=== PATIENT | female | born 1940 | race Caucasian/White ===

== ENCOUNTER 2018-10-15 10:09 | Inpatient (IN) | payer MEDICARE, BC ==
[2018-10-14 14:12] LABS: MONOCYTES # (AUTO) 0.1 X10'3 (0-0.9); NEUTROPHILS # (AUTO) 1.4 X10'3 (1.8-7.7)
[2018-10-14 14:14] LABS: BASOPHILS % (AUTO) 1.6 % (0-1); EOSINOPHILS % (AUTO) 0.4 % (0-6); LYMPHOCYTES # (AUTO) 0.1 X10'3 (1.1-4.8); LYMPHOCYTES % (AUTO) 8.9 % (21-51); MEAN CORPUSCULAR HEMOGLOBIN 39.6 PG (27.0-31.0); MEAN CORPUSCULAR HGB CONC 34.2 g/dL (33.0-36.5); MEAN CORPUSCULAR VOLUME 115.8 FL (78-98); MEAN PLATELET VOLUME 9.5 FL (7.4-10.4); MONOCYTES % (AUTO) 3.3 % (2-12); NEUTROPHILS % (AUTO) 85.8 % (42-75); PRE OP HEMATOCRIT 26.3 % (35.0-45.0); PRE OP PLATELET COUNT 169 X10'3 (140-440); RED BLOOD COUNT 2.27 X10'6 (4.20-5.60); RED CELL DISTRIBUTION WIDTH 25.6 % (11.5-14.5)
[2018-10-14 14:22] LABS: PRE OP INR 1.1 INR; PRE OP PROTIME 10.7 SECONDS (9.0-12.0)
[2018-10-14 14:24] LABS: ALBUMIN 3.3 G/DL (3.4-5.0); ALBUMIN/GLOBULIN RATIO 0.9 (1.1-1.5); ALKALINE PHOSPHATASE 101 IU/L (46-116); BLOOD UREA NITROGEN 10 MG/DL (7-18); BUN/CREATININE RATIO 12.7 (6.6-38.0); CALCIUM 8.2 MG/DL (8.5-10.1); CHLORIDE 108 MMOL/L (99-107); CREATININE 0.79 MG/DL (0.40-0.90); PRE OP ALT 18 U/L (30-65); PRE OP ANION GAP 9 (8-16); PRE OP AST 20 U/L (10-37); PRE OP BILIRUB, TOTAL 0.6 MG/DL (0.0-1.0); PRE OP GLUCOSE 121 MG/DL (70-104); PRE OP POTASSIUM 3.8 MMOL/L (3.4-5.1); PRE OP SODIUM 141 MMOL/L (135-145); TOTAL CARBON DIOXIDE 24.3 MMOL/L (24-32); TOTAL PROTEIN 6.8 G/DL (6.4-8.2); eGFR 70 ML/MIN
[2018-10-14 14:52] LABS: ANISOCYTOSIS 3+; PLATELET ESTIMATE NORMAL; TOTAL CELLS COUNTED 100
[2018-10-14 14:53] LABS: POLYCHROMASIA 1+
[~2018-10-15] VITALS: Ht 157.5 cm; Wt 54.9 kg
[2018-10-15] VITALS (16 sets, daily range): BP systolic 77–136; BP diastolic 40–74
[~2018-10-15 10:09] MED LIST: CHEMO INFUSION; LETR2.5T6 PO; LOSA50TA64 PO; NAPR125O4 PO; PALB100C PO
[2018-10-15] MEDS ORDERED: famotidine 20mg tablet PO ONE (10:15)
[2018-10-15] MEDS ORDERED: cefazolin/dext.iso 2gm/100 ML IV ONE (10:15)
[2018-10-15] MEDS ORDERED: VANCOMYCIN INJ 1000 MG in NORMAL SALINE 250ml IV.SOLN IV ONE (10:15)
[2018-10-15] MEDS: ringers solution, lacted 1,000 ML IV SCH (10:43)
[2018-10-15] MEDS ORDERED: tetracaine 1% (10mg/ml) pres. free inj. ONE (13:00)
[2018-10-15] MEDS ORDERED: MIDAZolam 5mg/5ml vial ONE (13:03)
[2018-10-15] MEDS ORDERED: fentaNYL/PF 50MCG/1 ML 2ML syringe ONE (13:03)
[2018-10-15] MEDS ORDERED: phenylephrine 10mg/ml inj. ONE (13:20)
[2018-10-15] MEDS ORDERED: ePHEDrine 50MG/ML INJ. ONE (13:20)
[2018-10-15] MEDS ORDERED: BUPIVAcaine/PF 2.5 mg/ml (0.25%) 30ml vial ONE (13:47)
[2018-10-15] MEDS ORDERED: ringers solution, lacted 1,000 ML IV SCH (13:54)
[2018-10-15] MEDS ORDERED: ondansetron/PF 4mg/2ml inj IV PRN ×2 (13:55→15:00)
[2018-10-15] MEDS ORDERED: meperidine/PF 25mg/ml syringe IV PRN ×3 (13:55)
[2018-10-15] MEDS ORDERED: morphine 4 MG/ML inj SYRINge IV PRN ×2 (13:55)
[2018-10-15] MEDS ORDERED: proCHLORperazine 10 MG/2 ml inj IV PRN (13:55)
--- NOTE | 2018-10-15 14:26 | NUR ---
Received from OR via ORTHOPEDIC BED WITH [facility] , accompanied by Anesthesiologist KAI and report given by Anesthesiolgist.PATIENT WITH 20G PIVI N RIGHT UE RUNNING LR AT 100. DENIES PAIN AT THIS TIME. VSS. RIGHT HIP DRESSING IS CDI. 4X4S AND OPSITE DRESSING IS CDI. + DORSALIS PEDIS PRESENT. SCDS DONNED IN RR. Addendum: 10/15/18 at 1442 by Romain Vergara RN, RN Amended: Links added.
[2018-10-15] MEDS ORDERED: acetaminophen 325mg tablet PO PRN (15:00)
[2018-10-15] MEDS ORDERED: bisacodyl 10mg suppository rectal RC PRN (15:00)
[2018-10-15] MEDS ORDERED: metoclopramide 5 mg/ml inj IV PRN (15:00)
[2018-10-15] MEDS ORDERED: diphenhydrAMINE 25mg capsule PO PRN ×2 (15:00)
[2018-10-15] MEDS ORDERED: mag hydrox/Alum hydrox/simeth 30ml oral suspension PO PRN (15:00)
[2018-10-15] MEDS ORDERED: magnesium hydroxide 30ml (MOM) UD suspension PO PRN (15:00)
--- NOTE | 2018-10-15 15:16 | NUR ---
ALL CRITERIA FOR TRANSFER TO THE FLOOR HAS BEEN ACHIEVED. VSS. BED LOW, CALL LIGHT AND VS. SET IN PLACE. FAVIOLA MIKE PRESENT TO ACCEPT CARE. PATIENT RESTING COMFORTABLY IN BED. BELONGINGS SENT WITH PATIENT. DRESSINGS CDI. Addendum: 10/15/18 at 1525 by Romain Vergara RN, RN Amended: Links added.
[2018-10-15] MEDS: ceFAZolin 1GM/D5W- ADD-VANTAGE 50 ML IV SCH (16:09)
[2018-10-15] MEDS: potassium cl 20mEq in 1/2 NS 1,000 ML IV SCH (16:10)
--- NOTE | 2018-10-15 18:05 | NUR ---
Problems reprioritized. Patient report given, questions answered & plan of care reviewed with JOSE MANUEL SALMERON.
[2018-10-15] MEDS ORDERED: vancomycin/NS 1 GM ADD-VANTAGE 250 ML IV SCH (20:00)
[2018-10-15] MEDS: ascorbic acid 500mg tablet PO SCH (20:33)
[2018-10-15] MEDS: gabapentin 300mg capsule PO SCH (20:35)
[2018-10-15] MEDS: acetaminophen 325mg tablet PO SCH (20:35)
[2018-10-15] MEDS: sennosides 8.6mg tablet PO SCH (20:36)
[2018-10-16] VITALS (14 sets, daily range): BP systolic 90–147; BP diastolic 45–118
[2018-10-16] MEDS: ceFAZolin 1GM/D5W- ADD-VANTAGE 50 ML IV SCH (00:09)
[2018-10-16] MEDS: acetaminophen 325mg tablet PO SCH ×5 (02:00→20:00)
[2018-10-16] MEDS: potassium cl 20mEq in 1/2 NS 1,000 ML IV SCH ×4 (02:30→22:56)
[2018-10-16] MEDS: ibuprofen 100 MG/5 ML oral susp PO PRN ×2 (02:31→14:14)
[2018-10-16] MEDS: ringers solution, lacted 1,000 ML IV SCH (04:30)
--- NOTE | 2018-10-16 06:00 | NUR ---
Patient in room ORTHO 4007. I have received report from JOSE MANUEL SALMERON and had the opportunity to ask questions and assume patient care.
[2018-10-16 06:29] LABS: EOSINOPHILS % (AUTO) 2.1 % (0-6); LYMPHOCYTES # (AUTO) 0.1 X10'3 (1.1-4.8); LYMPHOCYTES % (AUTO) 19.6 % (21-51); MEAN CORPUSCULAR HEMOGLOBIN 40.9 PG (27.0-31.0); MEAN CORPUSCULAR HGB CONC 35.1 g/dL (33.0-36.5); MEAN CORPUSCULAR VOLUME 116.4 FL (78-98); MEAN PLATELET VOLUME 9.4 FL (7.4-10.4); MONOCYTES % (AUTO) 6.3 % (2-12); NEUTROPHILS # (AUTO) 0.4 X10'3 (1.8-7.7); PLATELET COUNT 89 X10'3 (140-440); RED BLOOD COUNT 1.55 X10'6 (4.20-5.60)
[2018-10-16 06:31] LABS: ANION GAP 8 (8-16); CHLORIDE 111 MMOL/L (99-107); POTASSIUM 4.2 MMOL/L (3.5-5.1); SODIUM 140 MMOL/L (135-145); TOTAL CARBON DIOXIDE 21.5 MMOL/L (24-32)
[2018-10-16 06:50] LABS: WHITE BLOOD COUNT 0.6 X10'3 (4.5-11.0)
[2018-10-16 06:51] LABS: HEMATOCRIT 18.1 % (35.0-45.0); HEMOGLOBIN 6.3 g/dl (12.0-16.0)
[2018-10-16 07:00] LABS: PLATELET ESTIMATE DECREASED; TOTAL CELLS COUNTED 50
[2018-10-16 07:01] LABS: ANISOCYTOSIS 3+; HYPOCHROMASIA 1+; POLYCHROMASIA 1+; TEAR DROP CELLS 1+
[2018-10-16] MEDS ORDERED: morphine 2 MG/ML inj. syringe IV PRN (07:15)
[2018-10-16] MEDS: ascorbic acid 500mg tablet PO SCH ×2 (08:00→20:00)
[2018-10-16] MEDS ORDERED: enoxaparin 40mg/0.4ml syringe SQ SCH (08:00)
[2018-10-16] MEDS ORDERED: PALB125C PO (08:40)
[2018-10-16] MEDS ORDERED: PALB100C PO (08:59)
[2018-10-16] MEDS: PALBOCICLIB PO SCH (09:36)
[2018-10-16] MEDS: LETROZOLE 2.5 MG PO SCH (09:36)
[2018-10-16] MEDS: gabapentin 300mg capsule PO SCH ×3 (09:36→20:45)
[2018-10-16] MEDS: multivitamins, therapeutics tablet PO SCH (09:37)
[2018-10-16] MEDS: losartan 50mg tablet PO SCH (09:38)
--- NOTE | 2018-10-16 16:21 | NUR ---
Malnutrition consult: pt presents with mild weakness, first admission here no weight history. s/p closed prophylactic rodding femoral right 10/15. RLE trace 1+ non pitting edema, possibly r/t recent surgery. Eating 25% of meals. Patient seen at bedside, very pleasant demeanor. Reports that her appetite waxes and wanes and tried to drink carnation instant breakfast and boost when her appetite is poor. Recommend sending Ensure Enlive with meals, notified MD and Dietary. Pt prefers chocolate and vanilla. Patient reports her UBW is 130 lbs, currently weighs 121 lbs, 7.3% less than usual. Reports the weight loss occurred over 3 months. Patient does meet criteria for moderate malnutrition, given written malnutrition education handout with verbal review. Pt requesting chopped meats, d/w dietary. Encouraged patient to consumed high calorie foods and provided examples. Malnutrition may be r/t undergoing chemotherapy for CA. Will continue to follow. Recommend: 1. continue regular diet 2. send ensure enlive with all meals 3. encourage high calorie meals 4. wt per rx Addendum: 10/16/18 at [address] Amended: Links added.
[2018-10-16] MEDS: lactose-reduced food (Ensure Enlive) - 237ml bottle PO SCH (18:00)
--- NOTE | 2018-10-16 18:00 | NUR ---
Problems reprioritized. Patient report given, questions answered & plan of care reviewed with JOSE MANUEL SALMERON.
[2018-10-16] MEDS: sennosides 8.6mg tablet PO SCH (21:00)
[2018-10-17] MEDS: acetaminophen 325mg tablet PO SCH ×2 (02:00→08:00)
[2018-10-17 06:00] VITALS: BP 156/74
--- NOTE | 2018-10-17 06:05 | NUR ---
Patient in room ORTHO 4007. I have received report from JOSE MANUEL SALMERON and had the opportunity to ask questions and assume patient care.
[2018-10-17] MEDS: potassium cl 20mEq in 1/2 NS 1,000 ML IV SCH (06:33)
[2018-10-17 06:53] LABS: HEMATOCRIT 32.1 % (35.0-45.0); LYMPHOCYTES # (AUTO) 0.1 X10'3 (1.1-4.8); MEAN CORPUSCULAR HEMOGLOBIN 35.2 PG (27.0-31.0); MEAN CORPUSCULAR HGB CONC 34.4 g/dL (33.0-36.5); NEUTROPHILS # (AUTO) 0.6 X10'3 (1.8-7.7); RED BLOOD COUNT 3.14 X10'6 (4.20-5.60)
[2018-10-17 06:58] LABS: BASOPHILS % (AUTO) 1.6 % (0-1); EOSINOPHILS % (AUTO) 2.7 % (0-6); HEMOGLOBIN 11.1 g/dl (12.0-16.0); MEAN CORPUSCULAR VOLUME 102.5 FL (78-98); MONOCYTES # (AUTO) 0.1 X10'3 (0-0.9); MONOCYTES % (AUTO) 6.4 % (2-12); NEUTROPHILS % (AUTO) 72.3 % (42-75); PLATELET COUNT 92 X10'3 (140-440); RED CELL DISTRIBUTION WIDTH 26.8 % (11.5-14.5)
[2018-10-17 07:18] LABS: WHITE BLOOD COUNT 0.9 X10'3 (4.5-11.0)
[2018-10-17] MEDS: multivitamins, therapeutics tablet PO SCH (08:00)
[2018-10-17] MEDS: ascorbic acid 500mg tablet PO SCH (08:00)
[2018-10-17] MEDS: gabapentin 300mg capsule PO SCH (08:00)
[2018-10-17] MEDS ORDERED: aspirin 325mg tablet PO SCH (08:30)
[2018-10-17] MEDS: losartan 50mg tablet PO SCH (08:56)
[2018-10-17] MEDS: lactose-reduced food (Ensure Enlive) - 237ml bottle PO SCH (08:57)
[2018-10-17] MEDS: LETROZOLE 2.5 MG PO SCH (08:57)
[2018-10-17] MEDS: PALBOCICLIB PO SCH (08:57)
[2018-10-17 09:09] LABS: ANISOCYTOSIS 3+; PLATELET ESTIMATE DECREASED; TOTAL CELLS COUNTED 100
[2018-10-17 09:10] LABS: LARGE PLATELETS FEW; POIKILOCYTOSIS 1+; POLYCHROMASIA 1+; TEAR DROP CELLS FEW
[2018-10-17] MEDS: ibuprofen 100 MG/5 ML oral susp PO PRN (09:37)
[2018-10-17 10:00] VITALS: BP 144/71
== END 2018-10-17 11:16 | disposition home health service (06) | DRG 481 ==
LOC: PAS 10:09 → PAS IN 10:09 → EDSTATUS 12:15 → ORTHO 4S 15:15
PROVIDERS: ADMIT Orthopaedic Surgery; ATTEND Orthopaedic Surgery
PROC: 0QH836Z Insertion of Intramedullary Internal Fixation Device into Right Femoral Shaft, Percutaneous Approach (ICD-10-PCS; principal; 2018-10-15 12:58)
PROC: 30233N1 Transfusion of Nonautologous Red Blood Cells into Peripheral Vein, Percutaneous Approach (ICD-10-PCS; 2018-10-16)
DX: C79.51 Secondary malignant neoplasm of bone (principal); E44.0 Moderate protein-calorie malnutrition; C50.919 Malignant neoplasm of unspecified site of unspecified female breast; G89.4 Chronic pain syndrome; Z96.642 Presence of left artificial hip joint; Z40.8 Encounter for other prophylactic surgery; I10 Essential (primary) hypertension; Z91.041 Radiographic dye allergy status; Z88.0 Allergy status to penicillin; Z91.013 Allergy to seafood; Z79.899 Other long term (current) drug therapy
CPT/HCPCS: 36415; 71046; 73552; 76000; 80051; 80053; 82948; 85025; 85610; 85730; 86885; 86900; 86901; 86920; 86945; 87081; 93005; 97110; 97116; 97530; A4215; A4338; A6250; A6258; A6449; C1713; G0378; J0690; J2250; J2370; J3010; J3370; J3480; J3490; J7120; J8999; P9016